=== PATIENT | male | born 1995 | race Caucasian/White ===

== ENCOUNTER 2017-12-01 14:20 | Emergency (ER) | payer BC, SELFPAY ==
--- NOTE | 2017-12-01 14:31 | HMH.EDUTC ---
[facility] [place] Disposition Clinical Impression: Swelling of left eyelid Corneal abrasion, left Qualifiers: Encounter type: initial encounter Qualified Code(s): S05.02XA - Injury of conjunctiva and corneal abrasion without foreign body, left eye, initial encounter Disposition: Home, Self-Care Condition on Discharge: Good Additional Instructions: F/U with eye doctor if not improving Prescriptions: Amoxicillin/Potassium Clav [Augmentin 875-125 Tablet] 1 tab PO Q12H 10 Days #20 tab Ofloxacin [Floxin 0.3% OTIC Solution 5mL] 1 drp OT QID 7 Days #1 bottle Referrals: Henri May [Other] Time of Disposition: 14:50 Medical Decision Making - Medical Records Medical records reviewed: Yes: I reviewed the patient's medical records. - Gregory Inquiry Pt receiving controlled substance: No [facility] [place] HPI - General Stated complaint: left eye swollen,unknown origin Time Seen by Provider: 12/01/17 14:32 - History of Present Illness Provider Complaint: Left eye swelling when he awoke this am. Went to bed last night with no issues. Eyelid has continued to swell throughout the day. No drainage. No trauma or injury to eye. No pain with movement. Opening eye, bright light is very irritating. No fever. Onset (ago): hour(s) (8) Location: eyes Relieving factors: none Exacerbating factors: other (light) Associated symptoms: denies other symptoms Treatments prior to arrival: none - Related Data Previous Rx's Medication Instructions Recorded Amoxicillin/Potassium Clav 1 tab PO Q12H 10 Days #20 tab 12/01/17 [Augmentin 875-125 Tablet] Ofloxacin [Floxin 0.3% OTIC 1 drp OT QID 7 Days #1 bottle 12/01/17 Solution 5mL] Allergies Allergy/AdvReac Type Severity Reaction Status Date / Time No Known Allergies Allergy Unverified 10/31/17 15:21 [facility] History I have reviewed the patient's past medical history: Yes ROS Obtained: Yes All systems reviewed & no additional complaints - Eyes Eyes: Denies blurry vision, Denies change in vision, Reports irritation, Reports eye pain Physical Exam - General General appearance: alert, in no apparent distress - Head Head exam: atraumatic - Eye Eye exam: Present: scleral icterus, conjunctival redness, periorbital swelling - ENT ENT exam: Present: normal oropharynx - Respiratory Respiratory exam: Present: normal lung sounds bilaterally - Cardiovascular Cardiovascular exam: Present: regular rate, normal rhythm - Extremities Exam Extremities exam: Present: normal inspection - Neurological Exam Neurological exam: Present: alert, oriented X3 - Psychiatric Psychiatric exam: Present: normal affect, normal mood - Skin Skin exam: Present: warm, dry Procedures - FB Removal Eye Topical anesthetic used: tetracaine Foreign body: other (No FB seen - corneal abrasion inner lower quadrant) Evidence of corneal penetration: No Procedure performed under: slit-lamp Patient tolerated procedure: well, no complications
[2017-12-01 14:32] VITALS: BP 129/81; PULSE 81; RESP 20; TEMP 36.6; O2SAT 98; BMI 38.0
--- NOTE | 2017-12-01 14:44 | ED_ITS ---
[facility] [place]ression: Swelling of left eyelid Corneal abrasion, left Qualifiers: Encounter type: initial encounter Qualified Code(s): S05.02XA - Injury of conjunctiva and corneal abrasion without foreign body, left eye, initial encounter Disposition: Home, Self-Care Condition on Discharge: Good Additional Instructions: F/U with eye doctor if not improving Prescriptions: Amoxicillin/Potassium Clav [Augmentin 875-125 Tablet] 1 tab PO Q12H 10 Days #20 tab Ofloxacin [Floxin 0.3% OTIC Solution 5mL] 1 drp OT QID 7 Days #1 bottle Referrals: Henri May [Other] Time of Disposition: 14:50 Medical Decision Making - Medical Records Medical records reviewed: Yes: I reviewed the patient's medical records. - Gregory Inquiry Pt receiving controlled substance: No [facility] [place] - General Stated complaint: left eye swollen,unknown origin Time Seen by Provider: 12/01/17 14:32 - History of Present Illness Provider Complaint: Left eye swelling when he awoke this am. Went to bed last night with no issues. Eyelid has continued to swell throughout the day. No drainage. No trauma or injury to eye. No pain with movement. Opening eye, bright light is very irritating. No fever. Onset (ago): hour(s) (8) Location: eyes Relieving factors: none Exacerbating factors: other (light) Associated symptoms: denies other symptoms Treatments prior to arrival: none - Related Data Previous Rx's Medication Instructions Recorded Amoxicillin/Potassium Clav 1 tab PO Q12H 10 Days #20 tab 12/01/17 [Augmentin 875-125 Tablet] Ofloxacin [Floxin 0.3% OTIC 1 drp OT QID 7 Days #1 bottle 12/01/17 Solution 5mL] Allergies Allergy/AdvReac Type Severity Reaction Status Date / Time No Known Allergies Allergy Unverified 10/31/17 15:21 [facility] History I have reviewed the patient's past medical history: Yes ROS Obtained: Yes All systems reviewed & no additional complaints - Eyes Eyes: Denies blurry vision, Denies change in vision, Reports irritation, Reports eye pain Physical Exam - General General appearance: alert, in no apparent distress - Head Head exam: atraumatic - Eye Eye exam: Present: scleral icterus, conjunctival redness, periorbital swelling - ENT ENT exam: Present: normal oropharynx - Respiratory Respiratory exam: Present: normal lung sounds bilaterally - Cardiovascular Cardiovascular exam: Present: regular rate, normal rhythm - Extremities Exam Extremities exam: Present: normal inspection - Neurological Exam Neurological exam: Present: alert, oriented X3 - Psychiatric Psychiatric exam: Present: normal affect, normal mood - Skin Skin exam: Present: warm, dry Procedures - FB Removal Eye Topical anesthetic used: tetracaine Foreign body: other (No FB seen - corneal abrasion inner lower quadrant) Evidence of corneal penetration: No Procedure performed under: slit-lamp Patient tolerated procedure: well, no complications
== END 2017-12-01 14:57 | disposition home or self-care (01) ==
PROVIDERS: Emergency Provider Physician Assistant
DX: S05.02XA Injury of conjunctiva and corneal abrasion without foreign body, left eye, initial encounter (principal); R22.0 Localized swelling, mass and lump, head
CPT/HCPCS: 65222; 99202

== ENCOUNTER 2018-01-29 22:14 | Emergency (ER) | payer BC, SELFPAY ==
[2018-01-29 22:18] VITALS: BP 137/92; PULSE 73; RESP 14; TEMP 36.6; O2SAT 98; BMI 36.9
--- NOTE | 2018-01-29 22:49 | HMH.EDGENADL ---
ED Disposition Clinical Impression: Headache Qualifiers: Headache type: unspecified Headache chronicity pattern: acute headache Intractability: not intractable Qualified Code(s): R51 - Headache Sinusitis Qualifiers: Sinusitis location: unspecified location Chronicity: unspecified Qualified Code(s): J32.9 - Chronic sinusitis, unspecified Disposition: Home, Self-Care Condition on Discharge: Good Instructions: DI for Headache Additional Instructions: use meds and see pcp for follow up Prescriptions: cephALEXin [Keflex 500mg Cap] 500 mg PO TID #21 cap - Critical Care Critical Care Time: No Attestation: On 01/29/18, the high probability of a clinically significant, sudden or life threatening deterioration of the following system(s) required my full and direct attention, intervention and personal management. The time I documented below is in addition to time spent performing reported procedures but includes the following listed in this critical care notation. Medical Decision Making - Medical Records Medical records reviewed: Yes: I reviewed the patient's medical records. - Gregory Inquiry Pt receiving controlled substance: No Vital Signs: 01/29/18 22:18 Temperature 97.8 F Temperature Source Oral Pulse Rate [Right Brachial] 73 Respiratory Rate 14 Blood Pressure [Right Arm] 137/92 Blood Pressure Mean [Right Arm] 107 Blood Pressure Source [Right Arm] Automatic Cuff Blood Pressure Position [Right Arm] Sitting 02 Sat by Pulse Oximetry 98 Oxygen Delivery Method Room Air - Lab Data Lab results reviewed: Yes: I reviewed the patient's lab results. Lab Results 01/29/18 22:55: WBC 15.9 H, RBC 4.95, Hgb 15.7, Hct 43.4, MCV 87.6, MCH 31.7 H, MCHC 36.2 H, RDW 12.9, Plt Count 201, MPV 9.0, Neut % (Auto) 82.8 H, Lymph % (Auto) 12.7, [place] % (Auto) 3.5, Eos % (Auto) 0.9, Baso % (Auto) 0.1, Neut # (Auto) 13.2 H, Lymph # (Auto) 2.0, [place] # (Auto) 0.6, Eos # (Auto) 0.1, Baso # (Auto) 0.0 01/29/18 22:55: Sodium 137, Potassium 3.9, Chloride 104, Carbon Dioxide 22, Anion Gap 14.9, BUN 12, Creatinine 0.99, Estimated Creat Clear 199, Estimated GFR 95, Est GFR ( Amer) 114, Glucose 157 H, Calcium 8.7, Total Bilirubin 0.2, AST 11 L, ALT 33, Alkaline Phosphatase 63, Total Protein 7.1, Albumin 3.6, Globulin 3.5 H, Albumin/Globulin Ratio 1.0 L Result diagrams: 01/29/18 22:55 01/29/18 22:55 Orders (Tests/Meds): ORDERS Category Date Time Status CT head/brain wo con Stat Cat Scan 01/29/18 22:[address] sinus wo con Stat Cat Scan 01/29/18 22:52 Taken CBC [Complete Blood Count Auto Diff] Stat Lab 01/29/18 22:55 Results ESR [Erythrocyte Sedimentation Rate] Stat Lab 01/29/18 22:55 Results - CT Data CT Scan: Head, Sinus Time Received: 00:[address] Reviewed: Yes: I have viewed the radiologist's interpretation Preliminary Findings: Normal/NAD General Adult HPI - General Chief complaint: PAIN Stated complaint: Chronic FELIX Time Seen by Provider: 01/29/18 22:49 Mode of Arrival: Ambulatory Source of Information: Patient, Significant Other, Medical Record Limitations: No Limitations Description of Symptoms (Recalled from ER Triage Doc. by RN): FELIX with N/V, Pt denies any injury, and states he has been having these types of FELIX 5 times a week for about 3 months now, he has not seen his PCP about this. - History of Present Illness HPI narrative: lt sided felix behind lt eye for the last 3 months /5x week with assoc n/v tonight - Onset (ago): week(s) Location: face Severity: similar to prior episodes Consistency: intermittent Treatments prior to arrival: none - Related Data Previous Rx's Medication Instructions Recorded cephALEXin [Keflex 500mg Cap] 500 mg PO TID #21 cap 01/30/18 Allergies Allergy/AdvReac Type Severity Reaction Status Date / Time No Known Allergies Allergy Verified 01/29/18 22:29 [facility] History I have reviewed the patient's past medical history: Yes - Social History Smok
--- NOTE | 2018-01-29 22:51 | CT_ITS ---
CT head/brain wo con HISTORY: Severe headache, pain ITS.REASON: piña ORDERING PHYSICIAN: Jarocho Patterson MD PATIENT AGE: 22 years COMPARISON: None TECHNIQUE: Axial images obtained without contrast. Brain and bone windows reviewed. FINDINGS: No midline shift, mass effect, intracranial hemorrhage, hydrocephalus, or extra-axial fluid collection is evident. The calvarium has an unremarkable appearance. No mastoid effusion. Mild mucosal thickening involves the ethmoid sinuses. No sinus air-fluid level... IMPRESSION: 1. No acute intracranial findings. 2. Mild ethmoid sinus disease
--- NOTE | 2018-01-29 22:52 | CT_ITS ---
CT sinus wo con CLINICAL INDICATION: Facial pain, eye pain on the left, headache, pressure behind the left eye ITS.REASON: facial pain/piña ORDERING PHYSICIAN: Jarocho Patterson MD PATIENT AGE: 22 years COMPARISON: None TECHNIQUE:Axial, sagittal, and coronal images are generated and reviewed without contrast. All CT scans at the facility use one or more dose reduction, viz: automated exposure control; ma/kV adjustment per patient size (including targeted exams where dose is matched to indication; i.e. head); or iterative reconstruction technique. FINDINGS: Minimal mucosal thickening involves the mid ethmoid sinuses. 9 mm retention cyst or polyp present along the upper lateral right maxillary sinus. Smaller 5 mm retention cyst or polyp along the anteromedial upper wall the left maxillary sinus. 8 mm retention cyst or polyp within the left inferomedial maxillary sinus. No air-fluid levels. The ostiomeatal complexes are patent. There is moderate rightward nasal septal deviation with septal spur projecting toward the right causing narrowing of the nasal canal. There are bilateral josue bullosa. The orbits have unremarkable appearance. Mild mildly prominent cervical lymph nodes. Mildly prominent adenoids. IMPRESSION: 1. Mild paranasal sinus disease as described above with mucosal thickening of the ethmoid sinuses and bilateral maxillary retention cysts. No sinus air-fluid levels. 2. Rightward nasal septal deviation. 3. Mildly prominent cervical lymph nodes and adenoids
[2018-01-29 23:13] LABS: Basophils % 0.1 % (0.1-2.0); Eosinophils # 0.1 K/mm3 (0.0-0.4); Eosinophils % 0.9 % (0.1-12.0); Hematocrit 43.4 % (42.0-52.0); Hemoglobin 15.7 g/dL (14.1-18.0); Lymphocytes % 12.7 K/mm3 (10-50); Mean Corpuscular HGB Conc 36.2 g/dL (31.8-35.4); Mean Corpuscular Hemoglobin 31.7 pg (27.0-31.2); Mean Corpuscular Volume 87.6 fl (80-94); Monocytes # 0.6 K/mm3 (0.1-1.0); Monocytes % 3.5 % (1.7-9.3); Neutrophils # 13.2 K/mm3 (1.8-7.8); Neutrophils % 82.8 % (37.0-80.0); Platelet Count 201 K/mm3 (142-424); Red Blood Count 4.95 M/mm3 (4.60-6.20); Red Cell Distribution Width 12.9 % (11.5-17.5); White Blood Count 15.9 K/mm3 (4.8-10.8)
[2018-01-29 23:20] LABS: MANUAL DIFFERENTIAL MANUAL DIFFERENTIAL (MANUAL DIFF)
[2018-01-29 23:22] LABS: Alanine Aminotransferase 33 U/L (12-78); Albumin Level 3.6 gm/dL (3.4-5.0); Alkaline Phosphatase 63 U/L (46-116); Anion Gap 14.9 mEq/L (5-15); Aspartate Amino Transferase 11 U/L (15-37); Bilirubin,Total 0.2 mg/dL (0.2-1.0); Blood Urea Nitrogen 12 mg/dL (7-18); Calcium 8.7 mg/dL (8.5-10.1); Carbon Dioxide 22 mmol/L (21.0-32.0); Chloride 104 mmol/L (98-107); Creatinine Clearance Estimated 199 mL/min (0-300); Creatinine,Serum 0.99 mg/dL (0.70-1.30); Estimated Glomerular Filt Rate 95 ml/min (>60); GFR (African American) 114 ML/MIN (>60); Globulin 3.5 gm/dl (1.3-3.2); Glucose 157 mg/dL (74-106); Potassium 3.9 mmoL/L (3.5-5.1); Sodium 137 mmol/L (136-145); Total Protein,Serum 7.1 gm/dL (6.4-8.2)
[2018-01-30 00:09] LABS: Erythrocyte Sedimentation Rate 7 mm/hr (0-15)
[2018-01-30 00:15] VITALS: BP 125/85; PULSE 85; RESP 16; TEMP 37; O2SAT 97
[2018-01-30 01:11] LABS: Anisocytosis 1+; Lymphocytes % 16 % (10-50); Monocytes % 2 % (2-9); Neutrophils % 82 % (42-76); Platelet Estimate Normal; Total Cells Counted 100
== END 2018-01-30 00:16 | disposition home or self-care (01) ==
PROVIDERS: Emergency Provider Emergency Medicine
DX: J32.9 Chronic sinusitis, unspecified (principal); F17.210 Nicotine dependence, cigarettes, uncomplicated
CPT/HCPCS: 70450; 70486; 80053; 85007; 85025; 85651; 99211; 99282

== ENCOUNTER 2020-12-25 12:44 | Emergency (ER) | payer MEDICAID, SELFPAY ==
[2020-12-25 13:06] VITALS: BP 139/89; PULSE 83; RESP 18; TEMP 36.6; O2SAT 98; BMI 42.7
--- NOTE | 2020-12-25 13:17 | HMH.EDUTC ---
[facility] [place] Disposition Clinical Impression: Encounter for laboratory testing for COVID-19 virus, Viral syndrome Disposition: Home, Self-Care Condition on Discharge: Good Instructions: Sore Throat, Diarrhea, DI for Nausea -- Adult, Nausea and Vomiting-Adult, DI for COVID-19 (Suspected or Confirmed ), Coronavirus Disease 2019, Preventing the Spread of Coronavirus Discharge Instructions Additional Instructions: *Monitor Temp, Over the counter Motrin or Tylenol as directed/as needed Tylenol every 4 hours and Motrin every 6 hours (as long as your family doctor has told you that you can take it) for fever or pain. and straight to ER if unable to lower temp less than 101.0 after medication given *Warm salt water gargles may help to soothe the throat *Throat Lozenges *Warm fluids like tea with honey may help to soothe the throat *Sleep elevated *Humidifier/Vaporizer *? Avoid fruit juices, as these do not replace minerals and can actually increase diarrhea. ? Children and adults can use sports drinks to replenish electrolytes. Younger children and infants should use products formulated for children, like oral rehydration solutions. ? Eat food in small amounts and let your stomach recover. ? Get lots of rest. You may feel tired or weak. ? No greasy or fried foods for the next 24-48 hours BRAT diet Bananas Rice Apples and [place] ? Make sure to drink plenty of liquids ? Return if needed ? Straight to ER if any life threatening symptoms ? Zofran as prescribed ? You was given an outpatient order for diarrhea panel, please collect specimen and bring back to outpatient lab then call back to the [facility] or follow up with family doctor for results ? Follow up with family doctor in the next 48-72 hours if no improvement or any worsening of symptoms Your throat swab was sent for culture. Those results are typically sent to your primary care. Be sure to follow up in 2-3 days with your family doctor/primary care physician if no improvement so they can review those result and treat if necessary. If you don?t have a primary care doctor, I recommend you get one but in the mean time, you will have to return to a walk in clinic Follow up IMMEDIATELY for new or worsening symptoms or no Noticeable improvement over the next 48-72 hours. 911 for difficulty breathing or swallowing You were tested for today for COVID19 your test result should be back in the next 24-48 hours, you may call to the [facility] to see if your test results are back in the next 48 hours [phone] [facility] hours are 9am-9pm You was given a handout with instructions for Self Quarantine and Self isolation for while you wait on test results and what to do if they are positive If you are positive the Health Dept will be contacting you also Prescriptions: Dicyclomine HCl [Bentyl 10mg capsule] 10 mg PO TID PRN #15 cap PRN Reason: Cramping Transmission Status: Received by [facility] Ondansetron [Zofran 4mg ODT] 4 mg PO TIDP PRN #9 tab PRN Reason: Nausea Transmission Status: Received by [facility] Referrals: Tuan Overton MD [Primary Care Provider] - As needed Forms: Work/School Release Time of Disposition: 13:32 Medical Decision Making - Gregory Inquiry Pt receiving controlled substance: No Gregory was queried for this patient: No Vital Signs: 12/25/20 13:06 Temperature 97.8 F Temperature Source Oral Pulse Rate [Right] 83 Respiratory Rate 18 Blood Pressure [Right Arm] 139/89 Blood Pressure Mean [Right Arm] 105 Blood Pressure Source [Right Arm] Automatic Cuff Blood Pressure Position [Right Arm] Sitting 02 Sat by Pulse Oximetry 98 Oxygen Delivery Method Room Air - Lab Data Lab results reviewed: Yes: I reviewed the patient's lab results. Orders (Tests/Meds): ORDERS Category Date Time Status Covid-19 Nasal PCR ([facility]) Routine Lab 12/25/20 13:10 Received Medical Decision Narrative: Patient reports cramping like pain before having diarrhea or vomiting H
[2020-12-25 13:44] VITALS: BP 135/90; PULSE 80; RESP 18; TEMP 36.6
[2020-12-25 16:04] LABS: UTC Strep Screen (Rapid) Negative (Negative)
== END 2020-12-25 13:45 | disposition home or self-care (01) ==
PROVIDERS: Emergency Provider Nurse Practitioner; PCP Family Medicine
DX: Z20.822 Contact with and (suspected) exposure to COVID-19 (principal); B34.9 Viral infection, unspecified; F17.210 Nicotine dependence, cigarettes, uncomplicated
CPT/HCPCS: 87880; 99202; G0463; U0003